=== PATIENT | female | born 1995 | race Caucasian/White ===

== ENCOUNTER 2021-05-08 15:54 | Emergency (ER) | payer MEDICAID ==
[~2021-05-08] VITALS: Ht 160 cm; Wt 90.0 kg
[2021-05-08 17:49] VITALS: BP 126/89
== END 2021-05-08 17:50 | disposition home or self-care (01) ==
LOC: EMS 16:03
DX: F32.9 Major depressive disorder, single episode, unspecified (principal); F17.290 Nicotine dependence, other tobacco product, uncomplicated
CPT/HCPCS: 99285; Z7502